=== PATIENT | female | born 1990 | race African-American/Black ===

== ENCOUNTER 2024-06-17 04:37 | Emergency (ER) | payer OTHER ==
[2024-06-17 04:47] VITALS: BMI 25.7
[2024-06-17] MEDS ORDERED: ONDANSETRON *ODT* 4 MG TABLET ONE (05:20)
[2024-06-17] MEDS ORDERED: ACETAMINOPHEN 325 MG TABLET (FP) ONE (05:20)
[2024-06-17] MEDS: ONDANSETRON *ODT* 4 MG TABLET SL ONE (05:44)
[2024-06-17] MEDS: ACETAMINOPHEN 1000 MG/100 ML BAG IVPB ONE (05:45)
[2024-06-17] MEDS: SODIUM CHLORIDE 0.9% 500 ML INFUS.BAG IV ONE ×2 (05:45→07:53)
[2024-06-17] MEDS: ONDANSETRON 4 MG/2 ML VIAL IVPB ONE (05:45)
[2024-06-17] MEDS: ACETAMINOPHEN 500 MG TABLET (FP) PO ONE (05:45)
[2024-06-17 08:05] LABS: HCG,QUALITATIVE URINE Negative
[2024-06-17 08:07] VITALS: BP 104/54; PULSE 71; RESP 17; TEMP 98.2
[2024-06-17 09:02] LABS: EPI CELLS >36 /uL (0-25.1); HYALINE CASTS 1 /uL (0-3.1); PH,URINE 5.5 (5.0-8.0); URINE APPEARANCE CLEAR; URINE BACTERIA 975 /uL (0-1359); URINE BILIRUBIN NEGATIVE (NEGATIVE); URINE COLOR YELLOW; URINE GLUCOSE (UA) NEGATIVE (NEGATIVE); URINE KETONE 3+ (NEGATIVE); URINE LEUK ESTERASE 1+ (NEGATIVE); URINE NITRITE NEGATIVE (NEGATIVE); URINE PROTEIN TRACE (NEGATIVE); URINE RBC 18 /uL (0-23.9); URINE WBC 35 /uL (0-25.8)
== END 2024-06-17 08:06 | disposition home or self-care (01) ==
LOC: JER 04:37
DX: R11.2 Nausea with vomiting, unspecified (principal); R19.7 Diarrhea, unspecified; B34.9 Viral infection, unspecified; Z20.822 Contact with and (suspected) exposure to COVID-19
CPT/HCPCS: 0241U-QW; 81003; 84703; 99283-25; Q0162